=== PATIENT | male | born 1975 | race Caucasian/White ===

== ENCOUNTER 2018-10-24 00:39 | Inpatient (IN) ==
[2018-10-24] MEDS ORDERED: CARDIZEM IV ONE (00:56)
[2018-10-24] MEDS ORDERED: MORPHINE IV ONE (00:56)
[2018-10-24] MEDS ORDERED: NS 1,000 ML IV ONE (00:56)
[2018-10-24 01:09] LABS: BASO# 0.04 X1000 (0.0-0.2); BASO% 0.6 % (0.0-0.8); EOS# 0.22 X1000 (0.0-0.7); EOS% 3.4 % (0.0-10.0); HEMATOCRIT 48.4 % (42.0-52.0); HEMOGLOBIN 16.4 g/dL (14.0-18.0); LYMPH% 38.2 % (20.5-51.1); MCH 29.5 PG (27-31); MCHC 33.9 g/dL (33-37); MCV 87.2 FL (81-99); MONO# 0.54 X1000 (0.11-0.59); MONO% 8.3 % (1.7-9.3); MPV 9.7 FL (7.4-10.4); NEUT# 3.24 X1000 (1.4-6.5); NEUT% 49.5 % (42.2-75.2); PLT 238 X1000 (130-400); RBC 5.55 XMIL (4.7-6.1); RDW 11.7 % (11.5-14.5); WBC 6.54 X1000 (4.8-10.8)
[2018-10-24 01:27] LABS: ALB/GLOB RATIO 1.9; ALBUMIN 4.9 g/dL (3.5-5.0); CALCIUM 9.6 mg/dL (8.8-10.2); CREATININE 1.3 mg/dL (0.7-1.2); POTASSIUM 3.7 mmol/L (3.5-5.1); TOTAL BILIRUBIN 0.52 mg/dL (0.20-1.00); TOTAL PROTEIN 7.5 g/dL (6.3-8.3)
--- NOTE | 2018-10-24 01:57 | PROVIDER DOCUMENTATION ---
This chart was entered by Cassandra Prado Scribe, acting as scribe for Fei Raymundo MD. HPI-Cardiac General - General Stated Complaint: CHEST TIGHT, HEART POUNDING HARD Time Seen by Provider: 10/24/18 00:55 Source: patient Allergies/Adverse Reactions: Patient Allergies Allergy/AdvReac Type Severity Reaction Status Date / Time No Known Allergies Allergy Verified 10/24/18 00:56 Home Medications: Home Medication List Medication Instructions Recorded Confirmed Last Taken Type ATORVAstatin [Lipitor] 40 mg PO DAILY 10/24/18 10/24/18 10/24/18 History Sertraline HCl [Zoloft] 100 mg PO QHS 10/24/18 10/24/18 Unknown History - History of Present Illness-Cardiac Nature of Presenting Problem: Pt is 43/m presenting to ED after coming home from work and having chest tightness and pounding heart. Sts that he was feeling some palpitations. No hx of A-fib Location: reports: central Quality of Pain: reports: tightness Severity in ED: moderate Onset/Duration: just prior to arrival Timing: still present Context/Activities at Onset: reports: none Modifying Factors: improves with: nothing Palpitation Quality: fast/pounding heart beat History of arrythmia: reports: none Aspirin Treatment Today: reports: 325 mg x 1 Prior Chest Pain/Cardiac Workup: reports: no prior chest pain Associated Symptoms: reports: denies symptoms Similar Symptoms Previously?: No Recently Seen Here or By Another Healthcare Provider: No Review of Systems - Adult - REVIEW OF SYSTEMS - ADULT Constitutional: reports: no symptoms reported Eyes: reports: no symptoms reported Ears, Nose, Mouth & Throat: reports: no symptoms reported Cardiovascular: reports: palpitations Respiratory: denies: cough, shortness of breath, wheezing Gastrointestinal: reports: no symptoms reported Genitourinary: reports: no symptoms reported Musculoskeletal: reports: no symptoms reported Neurological: reports: no symptoms reported. denies: dizziness/vertigo, headache/migraines Psychiatric: reports: no symptoms reported Endocrine: reports: no symptoms reported Hematologic/Lymphatic: reports: no symptoms reported Allergic/Immunologic: reports: no symptoms reported All Other Systems: Reviewed and Negative Past History - Adult - PAST MEDICAL HISTORY-ADULT Review of Records: reports: Old Records Reviewed, Nursing Assessment Review, Medications Reviewed, Social history reviewed & non-contributory. - SOCIAL HISTORY Living Situation: family Physical Exam-General - PHYSICAL EXAM-ADULT Initial Vital Signs Reviewed: Yes - CONSTITUTIONAL General Appearance: appears well, alert, mild distress - EYES Eyes: PERRL/EOMI - HEAD, EARS, NOSE, MOUTH & THROAT HENMT: TMs normal - NECK Neck: non-tender, full range of motion, supple, normal inspection - RESPIRATORY Respiratory: chest non-tender, lungs clear, normal breath sounds - CARDIOVASCULAR Cardiovascular: tachycardia - LYMPHATIC Lymphatic: no adenopathy - MUSCULOSKELETAL Back Exam: normal inspection, no CVA tenderness, no vertebral tenderness Extremity: normal range of motion, non-tender, normal gait, normal inspection - SKIN Integumentary: normal color, warm/dry - NEUROLOGIC Neurologic: grossly normal - PSYCHIATRIC Psych/Mental Status: normal thought content, normal thought process, oriented x 3 Progress - PLAN OF CARE/RESULTS Progress/Plan/Lab Results: Vital Signs - 8 hr 10/24/18 00:59 Temperature 97.7 F Pulse Rate 144 H Respiratory Rate 18 Blood Pressure 167/114 O2 Sat by Pulse Oximetry 96 Laboratory Results - last 24 hr 10/24/18 10/24/18 10/24/18 00:58 00:58 00:58 WBC 6.54 RBC 5.55 Hgb 16.4 Hct 48.4 MCV 87.2 MCH 29.5 MCHC 33.9 RDW Std Deviation 11.7 Plt Count 238 MPV 9.7 Immature Gran % (Auto) 0.0 Neut % (Auto) 49.5 Lymph % (Auto) 38.2 Calloway % (Auto) 8.3 Eos % (Auto) 3.4 Baso % (Auto) 0.6 Immature Gran # (Auto) 0.00 Neut # (Auto) 3.24 Lymph # (Auto) 2.50 Calloway # (Auto) 0.54 Eos # (Auto) 0.22 Baso # (Auto) 0.04 Sodium 138 Potassium 3.7 Chloride 98 Carbon Dioxide 27 Anion Gap 13 BUN 15 Creatinine 1.3 H Estimated GFR/1.73 m2 60 BUN/Creatinine Ratio 12 Glucose 122 H Calculated Osmolality 278 Calcium 9.6 Total Bilirubin 0.52 AST 22 ALT 21 Alkaline Phosphatase 95 Troponin T < 0.010 Blh-[id number]-Rphfdrcxntf Pept Total Protein 7.5 Albumin 4.9 Globulin 2.6 Albumin/Globulin Ratio 1.9 10/24/18 00:58 WBC RBC Hgb Hct MCV MCH MCHC RDW Std Deviation Plt Count MPV Immature Gran % (Auto) Neut % (Auto) Lymph % (Auto) Calloway % (Auto) Eos % (Auto) Baso % (Auto) Immature Gran # (Auto) Neut # (Auto) Lymph # (Auto) Calloway # (Auto) Eos # (Auto) Baso # (Auto) Sodium Potassium Chloride Carbon Dioxide Anion Gap BUN Creatinine Estimated GFR/1.73 m2 BUN/Creatinine Ratio Glucose Calculated Osmolality Calcium Total Bilirubin AST ALT Alkaline Phosphatase Troponin T Ufo-I-Fzricfepnhw Pept 34 Total Protein Albumin Globulin Albumin/Globulin Ratio Orders Category Date Time Status cxr [CHEST-1 VIEW] [RAD] Stat Exams 10/24/18 00:55 Taken BNP [PRO B-NATRIURETIC PEPTIDE] Stat Lab 10/24/18 00:58 Completed CBC WITH ELECTRONIC DIFF [HEME] Stat Lab 10/24/18 00:58 Completed COMPREHENSIVE METABOLIC PANEL [CHEM] Stat Lab 10/24/18 00:58 Completed TROPONIN T Stat Lab 10/24/18 00:58 Completed 0.9% Sodium Chloride Inj [Ns] 1,000 ml Med 10/24/18 00:56 Discontinued IV 999 mls/hr Diltiazem [Cardizem] Med 10/24/18 00:56 Discontinued 25 mg IV NOW ONE Morphine Med 10/24/18 00:56 Discontinued 4 mg IV NOW ONE EKG [EKG] Stat Ther 10/24/18 00:41 Ordered Result Diagrams: 10/24/18 00:58 10/24/18 00:58 - EKG 1 Time of EKG reading by physician:: 00:48 EKG Read and Signed by:: Fei Raymundo EKG Interpretation (*Must complete 3 of following elements*): Abnormal (Atrial fibrillation with rapid ventricular response, Nonspecific ST and T wave abnormality, Abnormal ECG) QRS: normal NV Interval: normal Departure - Departure Date of Disposition Decision: 10/24/18 Time of Disposition Decision: 01:57 DIAGNOSIS: Atrial fibrillation with RVR Disposition: ADMITTED INPATIENT 09 Certified Medical Emergency: Emergent Condition: Stable Referrals and Follow-Ups: Malathi Garcia MD [Primary Care Provider] - - Critical Care Note This patient required my direct & personal management of CC.: No Attestation - Physician/ MARIA E Attestation Patient care was provided by Advanced Practice Provider:: No The physician spent face to face time with patient:: Yes Advanced Practice Provider documentation review:: Supervising physician onsite and consulted in the evaluation and care of this patient. The physician did have a face to face encounter with the patient. This chart was documented by the indicated scribe, (Cassandra Prado, Aliciaibe) and accurately reflects the services I performed and decisions made by me, Fei Raymundo MD, as attested by the provider's signature.
[2018-10-24] MEDS ORDERED: ZOFRAN IV PRN (03:10)
[2018-10-24] MEDS: NS 1,000 ML IV SCH ×2 (03:10→17:35)
[2018-10-24] MEDS: HEPARIN SUBQ SCH ×2 (03:30→12:30)
--- NOTE | 2018-10-24 04:08 | HISTORY AND PHYSICAL ---
PRIMARY CARE PHYSICIAN: Dr. Garcia. CHIEF COMPLAINT: Palpitations and chest discomfort. HISTORY OF PRESENTING ILLNESS: A 43-year-old male with a history of hyperlipidemia and obsessive compulsive disorder who had presented to emergency department with 1-day history of having some chest discomfort along with palpitations. He states that he was walking in his hallway when the symptoms started. He states that he could feel his heart racing and pounding. He was brought to the emergency department. He was put on telemetry. He was found to be in atrial fibrillation with rapid ventricular response. He was started on IV Cardizem, and he will require admission for further management. At the time of my examination, he denied any headache, fever, chills, nausea, vomiting, diarrhea, hemoptysis, melena or weight changes, but complained of palpitations. PAST MEDICAL HISTORY: Includes hyperlipidemia, OCD. PAST SURGICAL HISTORY: Tonsillectomy. ALLERGIES: No known drug allergies. CURRENT MEDICATIONS: Current medications include atorvastatin 40 mg p.o. daily , Zoloft 100 mg p.o. daily. SOCIAL HISTORY: No history of smoking, alcohol or illicit drug use. FAMILY HISTORY: No history of coronary artery disease. REVIEW OF SYSTEMS: Fourteen point review of systems as listed in HPI. Other systems negative. PHYSICAL EXAMINATION: GENERAL: Cooperative, friendly male. He is resting comfortably now. VITAL SIGNS: Temperature 97.7 degrees, pulse 140 respiration 18, blood pressure 167/114. HEENT: Atraumatic, normocephalic. Extraocular movements intact. PERRLA. NECK: Supple. CHEST: Clear to auscultation. CARDIOVASCULAR: Irregular. ABDOMEN: Soft, positive bowel sounds. EXTREMITIES: No edema. NEUROLOGIC: He is awake, alert, oriented x3. GENITOURINARY: No bladder distention. SKIN: Warm. LABORATORIES AND STUDIES: WBC 6.54, hemoglobin 16.4, hematocrit. 48.4, platelets 238,000. Sodium 138, potassium 3.7, chloride 98, CO2 is 27, BUN is 15, creatinine is 1.28, glucose is 122. ASSESSMENT: This is a 43-year-old male with a history of hyperlipidemia and obsessive-compulsive disorder who had presented to emergency department with a 1-day history of having chest discomfort and palpitation. He was evaluated in the emergency department. He was found to be in atrial fibrillation with rapid ventricular response he will require admission for further management. 1. Atrial fibrillation with rapid ventricular response. 2. Hyperlipidemia. 3. Obsessive compulsive disorder. PLAN: 1. We will admit patient to [facility]. 2. Continue with Cardizem drip. 3. We will consult Cardiology. 4. We will check thyroid profile. 5. We will check an echocardiogram. 6. Restart his statins. 7. We will also resume other home medications. 8. We will put patient on DVT prophylaxis with SCD. 9. We will continue to follow, and reassess and make further recommendation based on patient's clinical course. cc: Demetrio Zazueta MD MTDD
--- NOTE | 2018-10-24 07:28 | Diag Imaging Result Doc PS360 ---
CHEST-1 VIEW - 10/24/2018 INDICATION: chest pain COMPARISON: None FINDINGS: The lungs are normally expanded and clear. Heart size and mediastinal contours are normal. No pneumothorax or pleural effusion. IMPRESSION: Negative exam. Electronically signed by Kyle Galeas 10/24/2018 7:26 AM
[2018-10-24] MEDS: LIPITOR PO SCH (09:00)
[2018-10-24] MEDS: LOPRESSOR PO SCH ×2 (09:00→20:24)
[2018-10-24] MEDS: LOVENOX SUBQ SCH (17:30)
[2018-10-24] MEDS: CARDIZEM PO SCH (20:00)
[2018-10-24] MEDS: ZOLOFT PO SCH (21:56)
--- NOTE | 2018-10-25 02:03 | PROGRESS NOTE ---
DATE: 10/24/2018 SUBJECTIVE: This morning, Mr. Jordan refers to be doing fairly okay. He said he has been feeling some pressure on his chest. Mr. Jordan got admitted early this morning. OBJECTIVE: Vital Signs: Blood pressure is down to 119/81. He presented with a blood pressure of 167/114. Pulse is 121. Respirations 22. Temperature is 97.7 degrees. General : Mr. Jordan is a 43-year-old male. He is in bed. He is not in any cardiopulmonary distress. HEENT: Mucosa is pink and moist. Anicteric. Acyanotic. Neck: Supple. Chest: Clear to auscultation. No crepitations. No rhonchi. Cardiovascular: Irregularly irregular, but no murmurs, no rubs, no gallops. Abdomen: Soft, nontender. Bowel sounds present. Extremities: No pedal edema. SAWDUST DRIER: Patient is awake, alert, and oriented. There is no focal neurological deficit. LABORATORY DATA: Has been reviewed. CBC is completely normal. Chemistry is also unremarkable, except for creatinine 1.3. Troponins have been 3 times checked, negative. ProBNP is 34. EKG did show an atrial fibrillation with rapid ventricular response. ASSESSMENT: 1. New-onset atrial fibrillation with rapid ventricular response. Patient is currently on metoprolol p.o. I have added Cardizem. Echocardiogram has been ordered, and Cardiology consult has also been placed. So far, the patient's chemistry does not show any abnormality. I will order a magnesium level to see where we are. 2. The patient also will be started on Lovenox for short-term stroke prophylaxis. 3. History of dyslipidemia. Will continue with atorvastatin. 4. Anxiety and depression disorder. Patient is on Zoloft. That has been started. PLAN: In general, Mr. Jordan seems to be doing fairly okay. He was given a dose of IV diltiazem, and that seems to have controlled some the heart rate. He was started on metoprolol, and I have added p.o. Cardizem to his current medications. We will continue with the IV fluids. We will continue with the gentle IV hydration, Lovenox, and await for Cardiology for further recommendations. The patient's heart rate is still not at target, so I would prefer to keep him in [facility] instead of downgrading him to a regular medical floor. cc: Hai Pruitt MD MTDNavin
[2018-10-25] MEDS: CARDIZEM PO SCH ×2 (02:04→07:32)
[2018-10-25] MEDS: LOVENOX SUBQ SCH ×2 (04:39→16:29)
[2018-10-25 05:56] LABS: BASO# 0.03 X1000 (0.0-0.2); BASO% 0.5 % (0.0-0.8); EOS# 0.21 X1000 (0.0-0.7); EOS% 3.5 % (0.0-10.0); HEMOGLOBIN 15.1 g/dL (14.0-18.0); LYMPH# 1.52 X1000 (1.2-3.4); LYMPH% 25.5 % (20.5-51.1); MCH 29.4 PG (27-31); MCHC 33.6 g/dL (33-37); MCV 87.5 FL (81-99); MONO# 0.48 X1000 (0.11-0.59); MONO% 8.1 % (1.7-9.3); MPV 9.8 FL (7.4-10.4); NEUT# 3.71 X1000 (1.4-6.5); NEUT% 62.4 % (42.2-75.2); PLT 246 X1000 (130-400); RBC 5.14 XMIL (4.7-6.1); RDW 11.9 % (11.5-14.5); WBC 5.95 X1000 (4.8-10.8)
[2018-10-25 06:16] LABS: AGAP 10; ALB/GLOB RATIO 1.2; ALBUMIN 3.6 g/dL (3.5-5.0); ALKALINE PHOSPHATASE 67 U/L (32-122); BUN 15 mg/dL (8-22); CALCIUM 8.2 mg/dL (8.8-10.2); CHLORIDE 106 mmol/L (98-107); COSMO 281; CREATININE 0.8 mg/dL (0.7-1.2); ESTIMATED GFR > 60; GLUCOSE 115 mg/dL (70-104); GOT 17 U/L (10-34); GPT 17 U/L (10-44); POTASSIUM 4.3 mmol/L (3.5-5.1); SODIUM 140 mmol/L (136-145); TCO2 24 mmol/L (25-35); TOTAL BILIRUBIN 0.55 mg/dL (0.20-1.00); TOTAL PROTEIN 6.6 g/dL (6.3-8.3)
[2018-10-25] MEDS: NS 1,000 ML IV SCH (06:28)
[2018-10-25] MEDS: LIPITOR PO SCH (08:34)
[2018-10-25] MEDS: LOPRESSOR PO SCH ×2 (08:34→20:30)
--- NOTE | 2018-10-25 12:53 | ECHO REPORT ---
ORDER DATE: 10/24/2018 ECHOCARDIOGRAPHIC MEASUREMENTS: 1. Interventricular septum 1.0. 2. Left ventricular posterior wall 1.0. 3. Diastolic diameter 4.7. 4. Left atrium 4. 5. Aorta 3.3. SUMMARY: 1. There is mild left atrial enlargement. Aortic valve leaflets are trileaflet. 2. Mitral valve was normal. 3. Tricuspid valve was normal. 4. Pulmonic valve was normal. 5. Aortic valve leaflets were trileaflet. 6. Pulmonic valve was normal. There is trace pulmonary regurgitation. 7. There is mild mitral regurgitation. 8. Mild tricuspid regurgitation. Peak velocity across the tricuspid valve was 2.1 m/sec. 9. Peak velocity across the aortic valve less than 2 m/sec. There is no aortic stenosis. There is trivial aortic regurgitation. 10. Atrial fibrillation was noted. Left ventricular ejection fraction estimated at 55% to 60%. 11. There is no pericardial effusion or obvious intracardiac mass or thrombus seen. cc: MD Hai Munguia MD
--- NOTE | 2018-10-25 14:01 | PROGRESS NOTE ---
DATE: 10/25/2018 SUBJECTIVE: This morning Mr. Jordan refers to be doing a whole lot better. He said he does not have any more chest discomfort and his heart rate has converted to normal sinus rhythm. OBJECTIVE: Vital signs: Blood pressure is 125/85, pulse is 62, respirations 15, temperature 98.1 degrees. The patient is saturating 99% on room air. General: Mr. Jordan is a 43-year-old male. He is in bed. No distress. HEENT: Mucosa is pink and moist. Anicteric. Acyanotic. Neck: Supple. Chest: Clear to auscultation. No crepitations. No rhonchi. Cardiovascular: Regular rate and rhythm. No murmurs. No rubs. No gallops. There are a few extrasystolic beats. GI: Abdomen is soft, nontender. Bowel sounds present. Extremities: No pedal edema. Distal pulses present. FREEZER WORKER: Patient is awake, alert, oriented. There is no focal neurological deficit. LABORATORY DATA: WBC 5.95, hemoglobin is 15.1, platelet count of 246,000. Chemistry is also reviewed, completely normal. Creatinine is down to 0.8 from 1.3 yesterday. ASSESSMENT: 1. New onset atrial fibrillation with rapid ventricular response on presentation. The patient is currently on p.o. metoprolol and Cardizem and seems to be in sinus rhythm at this point. He is still pending cardiology evaluation. Echocardiogram is normal. 2. Dyslipidemia. Will continue with atorvastatin. 3. History of situational anxiety and depression. We will continue with Zoloft. 4. Clinical volume depletion, improved. 5. Acute kidney injury, resolved. PLAN: So in general, I think Mr. Jordan is feeling a lot better. He is now in sinus rhythm. Will be pending further recommendations from Cardiology and hopefully get him discharged either today or tomorrow. cc: Hai Pruitt MD
--- NOTE | 2018-10-25 14:11 | CARDIOLOGY CONSULTATION ---
DATE: 10/25/2018 Patient is admitted with atrial fibrillation. Cardiology was consulted. HISTORY OF PRESENT ILLNESS: Mr. Cassius Jordan is a 43-year-old gentleman with history of obsessive-compulsive disorder and hyperlipidemia, came to the emergency room having chest discomfort associated with palpitations. Patient was noted to be in atrial fibrillation with rapid ventricular rate, started on Cardizem, and subsequently converted to sinus rhythm. He denies having similar episodes of palpitations in the past. Associated with the palpitations he had chest discomfort. Otherwise, he is very active. There is no exertional component of chest pain. There is no orthopnea, paroxysmal nocturnal dyspnea. There is no history of fevers or chills. REVIEW OF SYSTEM: A 14 point review of systems was done.GI: There is no history of nausea, vomiting, diarrhea. There is no history of hematemesis or melena. Central nervous system: No focal weakness to suggest a CVA or TIA. system: There is no dysuria or hematuria. Respiratory System: There is no history of cough, expectoration, hemoptysis. There is no history of fevers or chills. PAST MEDICAL HISTORY: Hyperlipidemia, obsessive-compulsive disorder. HOME MEDICATIONS: Atorvastatin 40, Zoloft 100. SOCIAL HISTORY: There is no history of smoking, alcohol, or illicit drug abuse. FAMILY HISTORY: There is no premature family history of coronary artery disease. PHYSICAL EXAMINATION: Vital Signs: Blood pressure was 125/85. When he came into the emergency room his blood pressure was elevated at 160 systolic. General: On examination he is otherwise comfortable. There is no fever. Cardiovascular System: Normal jugular venous pressure. First and second heart sounds were heard. There is no S3, S4, or gallop. Respiratory System: Normal air entry. There are no crepitations or rhonchi. Abdomen: Soft, nontender. There was no guarding or rigidity. Bowel sounds were heard. Central nervous system: Alert and oriented. Was moving all 4 extremities. Extremities: Examination of extremities revealed no pedal edema. HEENT: Atraumatic, normocephalic. Pupils were equal and reacting to light. LABORATORY: WBC 5.95, hemoglobin 15.1, hematocrit 45. Sodium 140, potassium 4.3, BUN 15, creatinine 0.8. When he came in his creatinine was 1.3. He was given IV fluids. Cardiac enzymes negative. ProBNP was normal. TSH 5.5, free T4 1.27. ASSESSMENT AND PLAN: 1. Mr. Cassius Jordan is a 43-year-old gentleman with a history of hyperlipidemia and obsessive-compulsive disorder, is admitted with atrial fibrillation. Currently he is in sinus rhythm. He has been started on beta blockers. Cardizem has been discontinued. His echocardiogram was unremarkable. 2. We will plan for a Cardiolite stress test to assess for and rule out ischemia. This is his first episode of atrial fibrillation. He has not had symptoms in the past. I have not made any other changes to his medication. 3. Hypercholesterolemia. Continue with atorvastatin. 4. For obsessive-compulsive disorder, he is on medications. I have not made any changes. cc: Akira Marks MD
[2018-10-25] MEDS: ZOLOFT PO SCH (20:29)
--- NOTE | 2018-10-26 08:08 | EKG Report ---
Test Performed on : 10/25/2018 05:57:29 AM Test Reason : Afib Blood Pressure : / mmHG Vent. Rate : 066 BPM Atrial Rate : 066 BPM P-R Int : 154 ms QRS Dur : 104 ms QT Int : 422 ms P-R-T Axes : 057 011 015 degrees QTc Int : 442 ms Normal sinus rhythm. Normal ECG When compared with ECG of 24-OCT-2018 00:48, (Unconfirmed) Sinus rhythm. has replaced Atrial fibrillation. Vent. rate has decreased BY [address] no longer depressed in Anterior leads ST elevation now present in Lateral leads T wave inversion less evident in Inferior leads Confirmed by Duyen DUVALL, Vinny Bautista ([id number]) on 10/26/2018 8:53:19 AM
--- NOTE | 2018-10-26 10:32 | EKG Report ---
Test Performed on : 10/24/2018 00:48:20 AM Test Reason : CP Blood Pressure : / mmHG Vent. Rate : 134 BPM Atrial Rate : 113 BPM P-R Int : 000 ms QRS Dur : 090 ms QT Int : 310 ms P-R-T Axes : 000 027 -21 degrees QTc Int : 462 ms Atrial fibrillation. with rapid ventricular response. Nonspecific ST and T wave abnormality Abnormal ECG No previous ECGs available Unconfirmed Result
[2018-10-26] MEDS: LOPRESSOR PO SCH (10:34)
[2018-10-26] MEDS: LOVENOX SUBQ SCH (10:34)
[2018-10-26] MEDS: LIPITOR PO SCH (10:34)
--- NOTE | 2018-10-26 11:25 | PROGRESS NOTE ---
DATE: 10/26/2018 SUBJECTIVE: This morning Mr. Jordan referred to be doing a lot better. No more chest discomfort. No chest pain. No shortness of breath. He has just finished the stress test. OBJECTIVE: Vitals: Blood pressure is 126/76, pulse was 58, respirations 20, temperature 97.8 degrees. General: Mr. Jordan is a 43-year-old gentleman. He is in bed, no distress. HEENT: Mucosa is pink and moist. Anicteric. Acyanotic. Neck: Supple. Chest: Clear to auscultation. No crepitations. No rhonchi. Cardiovascular: Regular rate and rhythm. No murmurs, no rubs, no gallops. Abdomen: Soft, nontender. Bowel sounds present. Extremities: No pedal edema. Central nervous system: Patient is awake, alert, oriented. There is no focal neurological deficit. DIAGNOSTIC STUDIES: None for today. MEDICATION: Patient's medications have all been reviewed. He is still on metoprolol 25 mg b.i.d. and Lovenox which we will discontinue. ASSESSMENT: 1. New onset atrial fibrillation with rapid ventricular response (RVR) on presentation. This has converted on its own. The patient is currently on metoprolol. Echocardiogram was unremarkable. A stress test has been done this morning, and we are waiting on the result. The patient does not have any other major risk factors for him to be on anticoagulation so I think he will be okay on just aspirin for home. 2. Dyslipidemia. We will continue with atorvastatin. 3. History of situational anxiety and depression. Patient is on Zoloft. 4. Acute kidney injury secondary to volume depletion, resolved In general, I think Mr. Jordan is doing fairly okay, currently asymptomatic. We are waiting on the stress test result. If it is normal, I think we can discharge him only on low-dose metoprolol and aspirin. cc: Hai Pruitt MD
[2018-10-26 11:56] VITALS: BP 118/81
--- NOTE | 2018-10-26 13:27 | Diag Imaging Result Document ---
PROCEDURE NAME: MYOCARDIAL PERF SCAN, STR/REST - 10/26/2018 INDICATION: Atrial fibrillation. PROCEDURES PERFORMED: 1. Lexiscan stress. 2. Kurt protocol stress. PROCEDURE IN DETAIL: Mr. Jordan was brought to the nuclear laboratory and had a resting study with injection of 13.4 mCi of technetium-99m sestamibi with usual imaging protocol utilized. He subsequently was brought back and had a Kurt protocol stress. At peak stress, he was injected with 36.8 mCi of technetium-99m sestamibi with usual imaging protocol utilized. FINDINGS: KURT PROTOCOL STRESS RESULTS: 1. Baseline EKG shows sinus rhythm. 2. Patient exercised for a total of 14-1/2 minutes achieving peak heart rate of 155 which was 87% of age predicted max. He achieved 17.5 METS and stage 5 of the Kurt protocol. Exercise capacity was 130% of age and sex predicted exercise capacity. 3. Appropriate blood pressure response for exercise. 4. Test was terminated due to fatigue. 5. No anginal complaints occurred during course of study. 6. No ischemic-related EKG changes or significant arrhythmias occurred during the course of the test. PERFUSION IMAGING RESULTS: 1. No evidence of abnormal extracardiac uptake. 2. TID ratio is 0.94. 3. Perfusion imaging demonstrates normal homogenous uptake of radiotracer throughout the myocardial segments. 4. There is a normal ejection fraction of 67%. End-diastolic volume of 115 and end-systolic volume of 38. Normal wall motion. cc: MD Akira Bender MD
--- NOTE | 2018-10-27 03:35 | DISCHARGE SUMMARY ---
ADMISSION DATE: 10/24/2018 DISCHARGE DATE: 10/26/2018 FOLLOWUP: 1. Dr. Malathi Garcia. 2. Dr. Marks. CONSULTATIONS DURING THIS ADMISSION: Cardiology was consulted. Patient was seen by Dr. Marks. INVASIVE PROCEDURES DURING THIS ADMISSION: None. IMAGING STUDIES OF SIGNIFICANCE: 1. A chest x-ray was unremarkable. 2. Echocardiogram showed an ejection fraction of 55 to 60 percent. No valvular abnormality. 3. Myocardial perfusion scan showed no evidence of ischemic changes. ADMISSION DIAGNOSES: 1. Atrial fibrillation, with rapid ventricular response. 2. Dyslipidemia. 3. Obsessive-compulsive disorder. DIAGNOSES AT THE TIME OF DISCHARGE: 1. New-onset atrial fibrillation with RVR on presentation, which has spontaneously converted on its own. The patient is currently on metoprolol. Echocardiogram and stress test were unremarkable. 2. Dyslipidemia. Will continue with atorvastatin. 3. Obsessive-compulsive disorder. Patient is on Zoloft. 4. Acute kidney injury secondary to volume depletion on presentation. Resolved. DISCHARGE MEDICATIONS: 1. Atorvastatin 40 mg daily. 2. Zoloft 100 mg at bedtime. 3. Metoprolol 12.5 p.o. q.12. 4. Aspirin 81 mg daily. PRESENTING COMPLAINT: Palpitation and chest discomfort. HISTORY OF PRESENT COMPLAINT: Mr. Jordan is a 43-year-old male with a history of dyslipidemia, OCD, who presented to the emergency department because of chest discomfort and palpitation. Upon presenting, the patient was evaluated, and initial vitals revealed a pulse of 144. Blood pressure was 167/114. An EKG was done, which revealed atrial fibrillation with rapid ventricular response. The patient was started on an IV drip, and consulted for admission. HOSPITAL COURSE: Mr. Jordan was admitted to the cardiac floor, was continued on the Cardizem drip, which was subsequently transitioned to oral medications. Cardiology was consulted. Patient was seen by Dr. Marks. Echocardiogram was done, which was unremarkable. The patient after a couple hours on the floor, his heart rate converted on its own to sinus, with a normal rate. We continued with the rate control medications. Cardiology thought that a stress test was necessary, so that was done. However, it came out to be negative. Mr. Jordan refers to be feeling a lot better after the heart went into sinus rhythm, and good rate control. This morning, he is completely asymptomatic. His current vitals: Blood pressure is 118/81, pulse is 69, respirations 20, temperature 98.5 degrees. Physical exam is completely negative. The patient is in stable condition for discharge. He is going to follow up with his primary care doctor, and also with Cardiology. DISCHARGE INSTRUCTIONS: All the discharge instructions have been discussed in detail with him, and he voiced understanding. TIME SPENT FOR DISCHARGE: 37 minutes. cc: MD Malathi Funez MD Ashish K. Basu, MD
== END 2018-10-26 15:50 | disposition home or self-care (01) | DRG 309 ==
LOC: ED 00:39 → SUATTDRO 03:27 → EDIPHOLD 03:27 → 3S 21:14 → 4N 10-26 01:15
PROVIDERS: ATTEND Internal Medicine
CPT/HCPCS: 71010; 71045; 78452; 80053; 83735; 83880; 84439; 84443; 84484; 85025; 93005; 93010; 93017; 93306; 96361; 96372; 96374; 99285; A9270; A9500; J1644; J1650; J2270; J7030